=== PATIENT | female | born 1960 | race Hispanic/Latino ===

== ENCOUNTER → 2017-09-20 | Outpatient (CLI) | payer OTHER ==
--- NOTE | 2017-09-20 16:19 | Diagnostic Imaging Report ---
EXAM: DXA BONE DENSITY INDICATIONS: MENOPAUSAL COMPARISON: None. FINDINGS: Proximal left femur total bone mineral density (BMD) (g/cm2):0.815 Femur T-score (standard deviation relative to young adult mean BMD): -1.1 Femur Z-score (standard deviation relative to age-matched control group):-0.2 Proximal left femur neck bone mineral density (BMD) (g/cm2):0.756 Femur T-score (standard deviation relative to young adult mean BMD): -1.0 Femur Z-score (standard deviation relative to age-matched control group):0.2 Lumbar bone mineral density (BMD) (g/cm2):0.865 Lumbar T-score (standard deviation relative to young adult mean BMD): -1.7 Lumbar Z-score (standard deviation relative to age-matched control group):-0.3 Change since prior exam (%): Femur:Not applicable. Spine:Not applicable. Change since oldest prior exam (%): Femur:Not applicable. Spine:Not applicable. CONCLUSION: 1. Bone mineral density in the left femur is classified as osteopenia. Fracture risk is increased. 10 year major osteoporotic fracture risk 3.7% 2. Bone mineral density in the spine is classified as osteopenia. Fracture risk is increased. World Health Organization Classification: *The Z-score is provided for informational purposes. The T-score is preferable for clinical decisions. When comparing exams, a change of >4% is considered statistically significant. SUGGESTED RECOMMENDATIONS: Normal \T\ Osteopenia:Consideration should be given to use of calcium supplementation, daily multiple vitamins and adequate exercise, as preventive measures against osteoporosis, if clinically indicated. Osteoporosis \T\ Severe Osteoporosis:In addition to the above, consideration should be given to medical therapy against osteoporosis, if clinically indicated. Jourdan Grossman M.D. Dictated by: Jourdan Grossman M.D. on 09/20/2017 at 16:19 Electronically approved by: Jourdan Grossman M.D. on 09/20/2017 at 16:19
--- NOTE | 2017-09-22 14:02 | Diagnostic Imaging Report ---
History: Neck pain for a long time Comparison studies: None Technique: Sagittal T1, T2 and IR, axial T2 and axial gradient echo Intravenous contrast: None Findings: Alignment: Straightening of the normal lordosis No scoliosis. Cervicomedullary junction: No abnormalities. Patent foramen magnum. Soft tissues: No T2 hyperintense inflammatory changes. Spinal cord: Faint T2 hyperintensity within the spinal cord at C4-5 and C5-6. Vertebrae: Normal in height and signal intensity. No fractures, infection or neoplasm. Degenerative changes: C2-C3: Right uncinate process hypertrophy results in no significant canal stenosis and mild right foraminal narrowing C3-C4: Bilateral uncinate process hypertrophy, ligamentum flavum thickening and left facet hypertrophy results in mild canal stenosis, mild right and severe left foraminal narrowing C4-C5: Disc degeneration with loss of T2 signal and decreased intervertebral space. Diffuse disc osteophyte complex, bilateral uncinate process hypertrophy, bilateral facet hypertrophy and ligamentum flavum thickening results in moderate to severe central canal stenosis, moderate right and severe left foraminal narrowing C5-C6: Disc degeneration with loss of T2 signal and decreased intervertebral space. Left central disc osteophyte complex, bilateral uncinate process, facet hypertrophy and ligamentum flavum thickening results in moderate canal stenosis, impression on the left anterior cord, mild right and severe left foraminal C6-C7: Disc degeneration with loss of T2 signal. Asymmetric right disc osteophyte complex and bilateral uncinate process hypertrophy results in mild canal stenosis and mild bilateral foraminal narrowing C7-T1: Disc degeneration with loss of T2 signal. Patent canal and foramina IMPRESSION: 1. Moderate to severe canal stenosis, moderate right and severe left foraminal narrowing at C4-5 secondary to degenerative changes. Faint T2 hyperintensity on the cord, suggestive of mild compressive myelitis. 2. Moderate canal stenosis with impression of the left anterior cord and severe left foraminal narrowing at C5-6 secondary to degenerative changes. Faint hyperintensity in the left anterior cord suggestive of compressive myelitis. 3. Mild canal stenosis and mild bilateral foraminal narrowing at C6-7 secondary to degenerative changes. Signed by: DR Antelmo Lucia M.D. on 09/22/2017 1:59 PM
--- NOTE | 2017-09-26 08:20 | Diagnostic Imaging Report ---
#[id number] - MGSCRNBI #BILATERAL DIGITAL SCREENING MAMMOGRAM WITH CAD: 09/20/2017 CLINICAL: Routine screening. No prior exams were available for comparison. Current study contains 4 films. The tissue of both breasts is heterogeneously dense. This may lower the sensitivity of mammography. Current study was also evaluated with a Computer Aided Detection (CAD) system. There is a 2.4 cm oval mass in the right breast at 9 o'clock anterior depth. Scattered benign calcifications are present. No other significant masses, calcifications, or other findings are seen in either breast. IMPRESSION: INCOMPLETE: NEEDS ADDITIONAL IMAGING EVALUATION The 2.4 cm oval mass in the right breast is indeterminate. Additional views with possible ultrasound are recommended. The patient will be contacted by the Mammography Department to schedule this appointment. Trevon Chaudhary Jr., D.O. cw/:09/25/2017 13:37:26 Automotive Parts Counter Associate: Nelia BLUNT)(Edil), [facility] letter sent: Additional Imaging Needed Mammogram BI-RADS: 0 Indeterminate
== END ==
LOC: MAMMO 14:30
PROVIDERS: ATTEND Specialist
DX: Z12.31 Encounter for screening mammogram for malignant neoplasm of breast (principal); Z13.820 Encounter for screening for osteoporosis; Z78.0 Asymptomatic menopausal state; M85.862 Other specified disorders of bone density and structure, left lower leg; M85.88 Other specified disorders of bone density and structure, other site; M48.02 Spinal stenosis, cervical region
CPT/HCPCS: 72141; 77067; 77080

== ENCOUNTER → 2017-10-18 | Outpatient (CLI) | payer OTHER ==
--- NOTE | 2017-10-18 16:08 | Diagnostic Imaging Report ---
#[id number] - USBRECOMRT ULTRASOUND OF THE RIGHT BREAST : 10/18/2017 Comparison is made to exams dated: 10/18/2017 mammogram and 09/20/2017 mammogram - [facility]. Color flow and real-time ultrasound were performed on the right breast from the 6-9 o'clock position. At 8 o'clock 3 cm from the nipple is a benign appearing well circumscribed mass measuring 2.2 x 1.0 x 1.4 cm. 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 There are also 3 benign cysts at 6 and 8 o'clock measuring 4 mm, 4 mm and 8 mm in size. IMPRESSION: PROBABLY BENIGN - FOLLOW-UP RECOMMENDED A follow-up mammogram and an ultrasound in 6 months is recommended to demonstrate stability of the mass at 8 o'clock and the scattered calcifications. The patient was notified of these findings and the need for followup. In addition, patient and her relate a history of calcification and possible needle biopsy on the right breast. If these studies can become available then those would be important to compare with. Trevon Chaudhary Jr., D.O. cw/:10/18/2017 15:13:43 Aluminum Sheet Cutter: PATY YANG, [facility] letter sent: Followup Recommended Ultrasound BI-RADS: 3 Probably benign
--- NOTE | 2017-10-18 16:08 | Diagnostic Imaging Report ---
#[id number] - MGDXRT #UNILATERAL RIGHT DIGITAL DIAGNOSTIC MAMMOGRAM WITH SPOT COMPRESSION: 10/18/2017 Comparison is made to exam dated: 09/20/2017 mammogram - [facility]. Current study contains 3 films. The tissue of the right breast is heterogeneously dense. This may lower the sensitivity of mammography. There is an oval mass in the right breast at 8 o'clock anterior depth measuring 2 cm. Scattered indeterminate calcification is also present. No other significant masses are seen in the breast. IMPRESSION: INCOMPLETE: NEEDS ADDITIONAL IMAGING EVALUATION The oval mass in the right breast is indeterminate. An ultrasound is recommended and will be performed today. Trevon Chaudhary Jr., D.O. cw/:10/18/2017 15:06:29 Surgeon Assistant: Nelia OLSON(Chay)(M), [facility] letter sent: Additional Imaging Needed Mammogram BI-RADS: 0 Indeterminate
== END ==
LOC: MAMMO 13:06
PROVIDERS: ATTEND Specialist
DX: N63.10 Unspecified lump in the right breast, unspecified quadrant (principal)

== ENCOUNTER → 2018-06-07 | Outpatient (CLI) | payer OTHER ==
--- NOTE | 2018-06-10 08:36 | Diagnostic Imaging Report ---
#[id number] - USBRELIMRT ULTRASOUND OF THE RIGHT BREAST : 06/07/2018 Comparison is made to exams dated: 06/07/2018 mammogram, 10/18/2017 ultrasound and 10/18/2017 mammogram - [facility]. Color flow and real-time ultrasound were performed on the right breast focused to the previously described abnormality. The hypoechoic mass at 8 o'clock has increased in size by 1 mm now measuring 2.27 cm (previously 2.17 cm). This is likely not significant. It still has a benign appearance. IMPRESSION: PROBABLY BENIGN - FOLLOW-UP RECOMMENDED A follow-up mammogram and an ultrasound in 6 months is recommended to demonstrate stability. The patient has been or will be contacted. Trevon Chaudhary Jr., D.O. cw/:06/07/2018 16:22:19 Medical Sonographer: Taylor Mendoza [facility], [facility] letter sent: Followup Recommended Ultrasound BI-RADS: 3 Probably benign
--- NOTE | 2018-06-10 08:36 | Diagnostic Imaging Report ---
#[id number] - MGDXRT #UNILATERAL RIGHT DIGITAL DIAGNOSTIC MAMMOGRAM WITH CAD SHORT-TERM FOLLOW-UP: 06/07/2018 Comparison is made to exams dated: 10/18/2017 mammogram, 09/20/2017 mammogram and 10/18/2017 ultrasound - [facility]. Current study contains 3 films. The tissue of the right breast is heterogeneously dense. This may lower the sensitivity of mammography. The mass in the right breast does not appear significantly changed. Area of calcification also is unchanged. Current study was also evaluated with a Computer Aided Detection (CAD) system. No significant masses, calcifications, or other findings are seen in the breast. IMPRESSION: PROBABLY BENIGN A follow-up mammogram in 6 months (which would be when she is due for a bilateral screening mammogram) is recommended to demonstrate stability. The patient informed of the findings on today's study and the need for followup. Trevon Chaudhary Jr., D.O. cw/:06/07/2018 15:34:16 Shoe Laster: Nelia BLUNT)(M), [facility] letter sent: Followup Recommended Mammogram BI-RADS: 3 Probably benign
== END ==
LOC: MAMMO 12:47
PROVIDERS: ATTEND Specialist
DX: R92.8 Other abnormal and inconclusive findings on diagnostic imaging of breast (principal)